=== PATIENT | male | born 1990 | race Caucasian/White ===

== ENCOUNTER 2024-10-01 19:40 | Inpatient (IN) | payer BC, MEDICAID ==
[~2024-10-01] VITALS: Ht 177.8 cm; Wt 91.0 kg
[2024-10-01 19:44] VITALS: O2SAT 97
[2024-10-01] MEDS: SODIUM CHLORIDE 0.9% 1,000 ML IV ONE ×3 (19:55→23:24)
[2024-10-01] MEDS: ADENOSINE 3 MG/ML 2ML VIAL IV ONE ×2 (19:58→20:48)
[2024-10-01] MEDS: LORAZEPAM 2MG/ML INJ IV ONE (20:03)
[2024-10-01 20:13] LABS: HEMATOCRIT. 47.7 % (42.0-52.0); HEMOGLOBIN. 16.5 g/dL (14.0-18.0); MEAN CORPUSCULAR HEMOGLOBIN 29.2 pg (28.0-32.0); MEAN CORPUSCULAR HGB CONC 34.6 g/dL (31.0-37.0); MEAN CORPUSCULAR VOLUME 84.4 fL (80.0-94.0); MEAN PLATELET VOLUME 7.9 fl (7.4-10.4); PLATELET 194 x1000/uL (130-400); RED BLOOD CELL COUNT 5.65 mill/uL (4.7-6.1); RED CELL DISTRIBUTION WIDTH 13.1 % (11.6-14.6); WHITE BLOOD COUNT 10.6 x1000/uL (4.5-11.0)
[2024-10-01 20:14] LABS: DIFFERENTIAL COMMENT 1
[2024-10-01 20:22] LABS: CHLORIDE 107 mEq/L (98-107); POTASSIUM 4.2 mEq/L (3.5-5.1); SODIUM 142 mEq/L (136-145)
[2024-10-01 20:23] LABS: CARBON DIOXIDE 19 mEq/L (21-32)
[2024-10-01 20:24] LABS: CALCIUM 9.3 mg/dL (8.7-10.4)
[2024-10-01] MEDS: LORAZEPAM 2MG/ML UD SYRINGE IV NR ×3 (20:26→23:24)
[2024-10-01 20:27] LABS: PLATELET ESTIMATE NORMAL
[2024-10-01 20:28] LABS: CREATININE 1.3 mg/dL (0.6-1.3)
[2024-10-01 20:29] LABS: ETHANOL BLOOD < 10 mg/dL (<10); GLUCOSE 139 mg/dL (70-105); UREA NITROGEN BLOOD 18 mg/dL (9-23)
[2024-10-01 20:31] LABS: TROPONIN I HIGH SENSITIVITY 28 ng/L (3.0-53)
[2024-10-01] MEDS ORDERED: LORAZEPAM 2MG/ML INJ IV ONE ×2 (21:00→23:15)
[2024-10-01 22:23] LABS: TROPONIN I HIGH SENSITIVITY 59 ng/L (3.0-53)
[2024-10-01] MEDS: ASPIRIN 325MG EC TABLET PO ONE (23:24)
[2024-10-02 00:01] LABS: CLARITY URINE CLEAR (CLEAR); COLOR URINE YELLOW (YELLOW); GLUCOSE URINE NEGATIVE (NEGATIVE); KETONES URINE TRACE (NEGATIVE); LEUKOCYTE ESTERASE URINE NEGATIVE (NEGATIVE); NITRITE URINE NEGATIVE (NEGATIVE); OCCULT BLOOD URINE NEGATIVE (NEGATIVE); PH URINE 6.5 (4.5-8.0); PROTEIN URINE NEGATIVE (NEGATIVE); SPECIFIC GRAVITY URINE 1.021 (1.005-1.030); UROBILINOGEN URINE 0.2 E.U./dL (0.2-1.0)
[2024-10-02 00:17] LABS: *AMPHETAMINES SCREEN URINE NEGATIVE (NEGATIVE); *BARBITURATES SCREEN URINE NEGATIVE (NEGATIVE); *BENZODIAZEPINES SCREEN URINE NEGATIVE (NEGATIVE); *COCAINE SCREEN URINE PRESUMPTIVE POSITIVE (NEGATIVE); CANNABINOID URINE SCREEN NEGATIVE (NEGATIVE); ECSTASY MDMA SCREEN URINE NEGATIVE (NEGATIVE); METHADONE URINE SCREEN NEGATIVE (NEGATIVE); OPIATES URINE SCREEN NEGATIVE (NEGATIVE); PHENCYCLIDINE URINE SCREEN NEGATIVE (NEGATIVE)
[2024-10-02] MEDS ORDERED: CLONIDINE 0.1MG TABLET PO PRN (00:30)
[2024-10-02] MEDS ORDERED: GUAIFENESIN 200MG/10ML SUGAR FREE UDC PO PRN (00:30)
[2024-10-02] MEDS ORDERED: ACETAMINOPHEN 325MG TABLET PO PRN ×2 (00:30)
[2024-10-02] MEDS ORDERED: LORAZEPAM 2MG/ML UD SYRINGE IV PRN (00:30)
[2024-10-02] MEDS ORDERED: MAGNESIUM/ALUMINUM HYDROXIDE/SIMETHICONE 30ML UDC PO PRN (00:30)
[2024-10-02] MEDS ORDERED: IPRATROPIUM/ALBUTEROL 0.5-3(2.5)MG/3ML NEB HHN PRN (00:30)
[2024-10-02] MEDS ORDERED: DOCUSATE SODIUM 100MG CAPSULE PO PRN (00:30)
[2024-10-02 01:00] VITALS: BP 140/83; PULSE 140; RESP 22; O2SAT 97
== END 2024-10-02 02:06 | disposition left against medical advice (07) | DRG 917 ==
LOC: EDBD 19:40 → ER 19:40 → 6WST 23:11 → ENRESERV 23:26
PROVIDERS: ADMIT Internal Medicine; ATTEND Internal Medicine
DX: T40.5X1A Poisoning by cocaine, accidental (unintentional), initial encounter (principal); I21.A1 Myocardial infarction type 2; R45.851 Suicidal ideations; I47.10 Supraventricular tachycardia, unspecified; F14.10 Cocaine abuse, uncomplicated; F20.9 Schizophrenia, unspecified; F32.9 Major depressive disorder, single episode, unspecified; Z53.29 Procedure and treatment not carried out because of patient's decision for other reasons; Y92.89 Other specified places as the place of occurrence of the external cause
CPT/HCPCS: 36415; 71045; 80048; 80305; 80320; 81003; 83880; 84484; 85025; 93005; 99291; J0153; J2060; J7030; G0480